=== PATIENT | male | born 1990 | race Caucasian/White ===

== ENCOUNTER 2019-03-05 10:02 | Emergency (ER) | payer OTHER ==
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
== END 2019-03-05 11:40 | disposition home or self-care (01) ==
LOC: ERS 10:02
DX: S20.312A Abrasion of left front wall of thorax, initial encounter (principal); S30.811A Abrasion of abdominal wall, initial encounter; V43.52XA Car driver injured in collision with other type car in traffic accident, initial encounter; Z79.899 Other long term (current) drug therapy
CPT/HCPCS: 71046